=== PATIENT | male | born 1965 | race American Indian/Alaskan Native ===

== ENCOUNTER 2017-06-12 12:05 | Emergency (ER) | payer OTHER ==
[2017-06-12 12:13] VITALS: TEMP 98.4; BMI 24.4
[2017-06-12] MEDS ORDERED: KETOROLAC TROMETHAMINE 60 MG/2 ML VIAL IVPUSH ONE (12:13)
--- NOTE | 2017-06-12 12:14 | PDOC ---
History of Present Illness - General Chief Complaint: Pain Stated Complaint: ABD PAIN Time Seen by Provider: 06/12/17 12:11 - History of Present Illness Initial Comments: 06/12/17 12:15 Mr. Tim is a 51 yo male w/ pmh of UC, HTN, HLD, abdominal hernia, prior kidney stones who presents c/o a 1 1/2-2 hour history of severe left flank pain. His pain had sudden onset earlier today and has migrated somewhat down his side. He reports this feels very similar to his previous kidney stone episodes. He reports he had initially experienced some blood in his urine last week and was put on an antibiotic by his pcp but that his urine has cleared of blood in the intervening time period. He has no other complaints at this time. The patient denies chest pain, shortness of breath, headache and dizziness. Denies fever, chills, nausea, vomit, diarrhea and constipation. Denies dysuria, frequency, and urgency. Allergies: NKDA Past History - Past Medical History Allergies/Adverse Reactions: Allergies Allergy/AdvReac Type Severity Reaction Status Date / Time No Known Allergies Allergy Verified 06/12/17 12:10 Home Medications: Ambulatory Orders Aspirin [ASA -] 81 mg PO DAILY 04/08/15 Atorvastatin Ca [Lipitor] 10 mg PO HS 04/08/15 Hydrochlorothiazide 25 mg PO DAILY 04/08/15 Mesalamine [Apriso] 0.375 gm PO DAILY 04/08/15 Irbesartan [Avapro] 0 mg PO DAILY 06/12/17 Oxycodone HCl/Acetaminophen [Percocet 5-325 mg Tablet] 1 tab PO Q6H PRN #14 tablet MDD 4 06/12/17 GI Disorders: Yes (COLITIS) HTN: Yes Hypercholesterolemia: Yes - Suicide/Smoking/Psychosocial Hx Smoking History: Never smoked Review of Systems - Review of Systems Comments:: 06/12/17 12:20 GENERAL/CONSTITUTIONAL: No fever or chills. No weakness. HEAD, EYES, EARS, NOSE AND THROAT: No change in vision. No ear pain or discharge. No sore throat. CARDIOVASCULAR: No chest pain or shortness of breath RESPIRATORY: No cough, wheezing, or hemoptysis. GASTROINTESTINAL: No nausea, vomiting, diarrhea or constipation. GENITOURINARY: +Hematuria as described. MUSCULOSKELETAL: No joint or muscle swelling or pain. No neck or back pain. SKIN: No rash NEUROLOGIC: No headache, vertigo, loss of consciousness, or change in strength/ sensation. ENDOCRINE: No increased thirst. No abnormal weight change HEMATOLOGIC/LYMPHATIC: No anemia, easy bleeding, or history of blood clots. ALLERGIC/IMMUNOLOGIC: No hives or skin allergy. *Physical Exam - Physical Exam Comments: 06/12/17 12:20 GENERAL: Awake, alert, and fully oriented, in no acute distress HEAD: No signs of trauma, normocephalic, atraumatic EYES: PERRLA, EOMI, sclera anicteric, conjunctiva clear ENT: Auricles normal inspection, hearing grossly normal, nares patent, oropharynx clear without exudates. Moist mucosa NECK: Normal ROM, supple, no lymphadenopathy, JVD, or masses LUNGS: No distress, speaks full sentences, clear to auscultation bilaterally HEART: Regular rate and rhythm, normal S1 and S2, no murmurs, rubs or gallops, peripheral pulses normal and equal bilaterally. ABDOMEN: Soft, nontender, normoactive bowel sounds. No guarding, no rebound. No masses EXTREMITIES: Normal inspection, Normal range of motion, no edema. No clubbing or cyanosis. NEUROLOGICAL: Cranial nerves II through XII grossly intact. Normal speech, normal gait, no focal sensorimotor deficits SKIN: Warm, Dry, normal turgor, no rashes or lesions noted. ED Treatment Course - LABORATORY CBC & Chemistry Diagram: 06/12/17 12:30 06/12/17 12:20 Medical Decision Making - Medical Decision Making 06/12/17 12:21 Mr. Tim is a 51 yo male w/ pmh as described who presents w/ symptoms consistent w/ nephrolithiasis. 06/12/17 13:42 CT positive for 6mm stone at upper kidney and 2mm stone within lower pole. Discharging patient w/ follow-up to Nephrology for further treatment. Patient proscribed pain control and verbalized understanding and agreement with plan. *DC/Admit/Observation/Transfer Diagnosis at time of Disposition: Nephrolithiasis - Discharge Dispostion Disposition: HOME - Prescriptions Prescriptions: Oxycodone HCl/Acetaminophen [Percocet 5-325 mg Tablet] 1 tab PO Q6H PRN #14 tablet MDD 4 PRN Reason: Pain - Referrals Referrals: Khang Pascal [Primary Care Provider] - Rechtschaffen,Ja, MD [Staff Physician] - - Patient Instructions Printed Discharge Instructions: DI for Kidney Stones Additional Instructions: Please return if any fever, chills, inability to control pain, inability to urine, or other concerning symptoms. Follow-up with nephrology as discussed for further evaluation. - Post Discharge Activity
[2017-06-12] MEDS ORDERED: KETOROLAC TROMETHAMINE 30 MG/1 ML VIAL IVPUSH ONE (12:16)
[2017-06-12] MEDS ORDERED: KETOROLAC TROMETHAMINE 30 MG/1 ML VIAL ONE (12:16)
[2017-06-12 12:39] LABS: BASO % 0.4 % (0-2.0); HEMATOCRIT 45.1 % (35.4-49); HEMOGLOBIN 15.2 GM/dL (11.7-16.9); LYMPH % 12.1 % (8-40); MCH 30.8 pg (25.7-33.7); MCHC 33.6 g/dl (32.0-35.9); MEAN CELL VOLUME 91.8 fl (80-96); NEUT % 80.5 % (42.8-82.8); PLATELET COUNT 252 K/MM3 (134-434); RBC 4.91 M/mm3 (4.00-5.60); RDW 14.1 % (11.9-15.9); WHITE BLOOD COUNT 17.4 K/mm3 (4.0-10.0)
[2017-06-12 12:41] LABS: URINE APPEARANCE SLCLOUDY; URINE BILIRUBIN NEGATIVE (NEGATIVE); URINE BLOOD 3+ (NEGATIVE); URINE COLOR STRAW; URINE GLUCOSE (UA) NEGATIVE (NEGATIVE); URINE KETONE NEGATIVE (NEGATIVE); URINE LEUK ESTERASE NEGATIVE (NEGATIVE); URINE NITRITE NEGATIVE (NEGATIVE); URINE PROTEIN NEGATIVE (NEGATIVE); URINE UROBILINOGEN NEGATIVE mg/dL (0.2-1.0)
[2017-06-12 13:11] LABS: ALBUMIN 4.2 g/dl (3.4-5.0); ANION GAP 12 (8-16); BILIRUBIN,TOTAL 0.5 mg/dL (0.2-1.0); BLOOD UREA NITROGEN 16 mg/dL (7-18); CALCIUM 9.5 mg/dL (8.5-10.1); CHLORIDE 102 mmol/L (98-107); CO2 25 mmol/L (21-32); GLUCOSE,RANDOM 98 mg/dL (74-106); SGPT/ALT 46 U/L (12-78); SODIUM 139 mmol/L (136-145); TOT PROT 8.5 g/dl (6.4-8.2)
[2017-06-12 13:12] LABS: ALK PHOS 70 U/L (45-117); POTASSIUM 4.7 mmol/L (3.5-5.1); SGOT/AST 35 U/L (15-37)
--- NOTE | 2017-06-12 13:13 | PDOC ---
Attending Attestation - Resident Resident Name: RefugiocharisAbbeJose - ED Attending Attestation I have performed the following: I have examined & evaluated the patient, The case was reviewed & discussed with the resident, I agree w/resident's findings & plan, Exceptions are as noted - HPI HPI: 06/12/17 13:43 51y M hx of hx of kidney stones presents with sudden onset of L flank pain approx 10am, was L sided, stabbling in the L flank, without associated fever/ chills, n/v. Pt notes he did have a couple of episodes of similar pain last week , but resolved, he had seen s PMD who started him on abx. pt notes the pain was abit improvedi n the ED. he also notes that when he urinated for our UA he noticed a little black spec. pts exam showed a soft nontender abdomen no cva tenderness likely kidney stone labs noted for elevated WBC to 17 - suspect this may hav ebeen a reaction to the pts pain rather than due to an infectious cause UA notd for hematuria w.o infection CT noted for two kidnye stones, no stones or hydro in the ureter pt feeling no pain on erassessment. abd rassessed and was soft nontender. suspect he may have passed a stone will refer pt to pmd fun and urology I discussed the physical exam findings, ancillary test results and final diagnoses with the patient. I answered all of the patient's questions. The patient was satisfied with the care received and felt comfortable with the discharge plan and treatment plan. The patient will call their primary care physician within 24 hours to arrange follow-up and will return to the Emergency Department with any new, persistent or worsening symptoms. - Physicial Exam PE: 06/12/17 19:50 see above - Medical Decision Making 06/12/17 19:50 see above
[2017-06-12 13:20] VITALS: BP 142/99; PULSE 78
[2017-06-12 13:26] LABS: URINE HYALINE CAST 6 /lpf; URINE MUCUS FEW; YEAST FEW
== END 2017-06-12 14:04 | disposition home or self-care (01) ==
LOC: JER 12:05
PROC: 3E0333Z Introduction of Anti-inflammatory into Peripheral Vein, Percutaneous Approach (ICD-10-PCS; principal; 2017-06-12)
DX: N20.0 Calculus of kidney (principal); Z87.442 Personal history of urinary calculi; I10 Essential (primary) hypertension; E78.5 Hyperlipidemia, unspecified; Z79.82 Long term (current) use of aspirin
CPT/HCPCS: 36415; 74176; 80053; 81003; 81015; 85025; 87086; 99283-25